=== PATIENT | male | born 1990 | race Two or more races ===

== ENCOUNTER 2017-09-14 20:55 | Emergency (ER) | payer MEDICAID ==
[~2017-09-14] VITALS: Ht 170.2 cm; Wt 73.8 kg
[2017-09-14 21:49] VITALS: BP 136/86
[2017-09-14 22:10] LABS: HEMATOCRIT 50.7 % (39.2-51.8); HEMOGLOBIN 16.7 g/dL (13.7-18.0); WHITE BLOOD COUNT 5.4 x10^3/uL (3.4-10)
[2017-09-14 22:23] LABS: ASPARTATE AMINO TRANSFERASE 11 U/L (15-37); BLOOD UREA NITROGEN 17 mg/dL (7-18)
[2017-09-14] MEDS ORDERED: POTASSIUM CHLORIDE 20 MEQ TAB.ER.PRT ONE (23:24)
[2017-09-14] MEDS: POTASSIUM CHLORIDE 20 MEQ TAB.ER.PRT PO ONE (23:30)
[2017-09-14] MEDS ORDERED: MAALOX/HYOSCYAMINE/LIDOCAINE 45 ML BTL ONE (23:38)
== END 2017-09-14 23:35 | disposition home or self-care (01) ==
LOC: ED 23:20
DX: K29.00 Acute gastritis without bleeding (principal); E87.6 Hypokalemia
CPT/HCPCS: 36415; 71010; 80053; 83690; 85025; 86677; 93005; 99285